=== PATIENT | female | born 1955 | race Caucasian/White ===

== ENCOUNTER → 2018-04-01 | Outpatient (CLI) | payer OTHER ==
--- NOTE | 2018-04-02 09:16 | MM ---
Reason for exam: screening (asymptomatic). Last mammogram was performed 2 years and 2 months ago. History: Patient is postmenopausal and is nulliparous. Physical Findings: A clinical breast exam by your physician is recommended on an annual basis and results should be correlated with mammographic findings. MG Screening Mammo w CAD Bilateral CC and MLO view(s) were taken. Prior study comparison: January 19, 2016, bilateral MG screening mammo w CAD. April 28, 2014, bilateral MG screening mammo w CAD. There are scattered fibroglandular densities. There is no discrete abnormality. ASSESSMENT: Negative, BI-RAD 1 RECOMMENDATION: Routine screening mammogram of both breasts in 1 year.
== END ==
LOC: RADMAMWWP 11:10
PROVIDERS: ATTEND Family Medicine
DX: Z12.31 Encounter for screening mammogram for malignant neoplasm of breast (principal)
CPT/HCPCS: 77067

== ENCOUNTER 2018-07-02 17:37 | Emergency (ER) | payer OTHER ==
[2018-07-02 18:59] VITALS: RESP 18
[2018-07-02 19:34] LABS: Basophils % (A) 0 %; Eosinophils # (A) 0.1 k/uL (0-0.7); Eosinophils % (A) 1 %; HCT 47.8 % (34.0-46.0); HGB 14.8 gm/dL (11.4-16.0); Lymphocytes # (A) 0.9 k/uL (1.0-4.8); Lymphocytes % (A) 10 %; MCH 26.7 pg (25.0-35.0); MCV 86.1 fL (80.0-100.0); Mean Platelet Volume 8.8; Monocytes # (A) 0.5 k/uL (0-1.0); Monocytes % (A) 5 %; Neutrophils # (A) 7.3 k/uL (1.3-7.7); Neutrophils % (A) 81 %; Platelet Count 192 k/uL (150-450); RBC 5.55 m/uL (3.80-5.40); RDW 14.1 % (11.5-15.5); WBC 9.1 k/uL (3.8-10.6)
[2018-07-02 19:43] LABS: ALT 24 U/L (9-52); AST 52 U/L (14-36); Albumin 4.7 g/dL (3.5-5.0); Alkaline Phosphatase 66 U/L (38-126); Amylase 66 U/L (30-110); Anion Gap 11 mmol/L; Blood Urea Nitrogen 15 mg/dL (7-17); Calcium 9.9 mg/dL (8.4-10.2); Carbon Dioxide 21 mmol/L (22-30); Chloride 102 mmol/L (98-107); Glucose 119 mg/dL (74-99); Lipase 150 U/L (23-300); Potassium 4.8 mmol/L (3.5-5.1); Sodium 134 mmol/L (137-145); Total Bilirubin 0.8 mg/dL (0.2-1.3); Total Protein 8.3 g/dL (6.3-8.2)
--- NOTE | 2018-07-02 20:49 | XR ---
EXAMINATION TYPE: XR KUB DATE OF EXAM: 07/02/2018 COMPARISON: NONE HISTORY: Lower abdominal pain TECHNIQUE: 2 upright views FINDINGS: Visualized lung bases and pleural spaces are negative. There is no pneumoperitoneum. No pneumatosis. The bowel gas pattern is normal. No acute skeletal or soft tissue findings. IMPRESSION: No acute radiographic process.
[2018-07-02] MEDS ORDERED: MORPHINE SULFATE 4 MG/ML SYRINGE IVP STA (21:05)
[2018-07-02] MEDS ORDERED: ONDANSETRON 4 MG/2 ML VIAL IVP STA (21:05)
[2018-07-02] MEDS ORDERED: SODIUM CHLORIDE 0.9% 1,000 ML IV ONE (21:05)
--- NOTE | 2018-07-02 22:32 | ED ---
Abdominal Pain HPI - General Chief Complaint: Abdominal Pain Stated Complaint: Abd.pain Time Seen by Provider: 07/02/18 20:27 Source: patient Mode of arrival: ambulatory Limitations: no limitations - History of Present Illness Initial Comments: 62-year-old female patient presents to the emergency department today for evaluation of lower abdominal pain. Patient states this started around 5:00 this morning. Patient states is intense at times and then lessens at times. Patient states that the pain has been intense. She denies any nausea, vomiting, constipation, or diarrhea. Denies any fever or chills with this. Denies any hematuria, dysuria, urinary frequency, urinary urgency. Denies any history of abdominal surgery. Denies any dark, black, or bloody stool. Patient denies any abnormal vaginal bleeding or discharge. Patient denies any recent rash, shortness breath, chest pain, back pain, numbness, tingling, dizziness, weakness, headache, visual changes, or any other complaints. - Related Data Home Medications Medication Instructions Recorded Confirmed Aspirin EC [Ecotrin Low Dose] 81 mg PO DAILY 07/02/18 07/02/18 Atorvastatin [Lipitor] 10 mg PO HS 07/02/18 07/02/18 Levothyroxine Sodium [Synthroid] 75 mcg PO DAILY 07/02/18 07/02/18 Multivitamins, Thera [Multivitamin 1 tab PO AC-LUNCH 07/02/18 07/02/18 (formulary)] Ubidecarenone [Co Q-10] 100 mg PO AC-LUNCH 07/02/18 07/02/18 Previous Rx's Medication Instructions Recorded Cephalexin [Keflex] 500 mg PO Q6H #28 cap 07/02/18 Allergies Allergy/AdvReac Type Severity Reaction Status Date / Time bee venom protein (honey bee) Allergy Rash/Hives Verified 07/02/18 20:32 Review of Systems ROS Statement: Those systems with pertinent positive or pertinent negative responses have been documented in the HPI. ROS Other: All systems not noted in ROS Statement are negative. Past Medical History Past Medical History: CVA/TIA, Hyperlipidemia, Thyroid Disorder History of Any Multi-Drug Resistant Organisms: None Reported Past Surgical History: No Surgical Hx Reported Past Psychological History: No Psychological Hx Reported Smoking Status: Never smoker Past Alcohol Use History: Occasional Past Drug Use History: None Reported General Exam Limitations: no limitations General appearance: alert, in no apparent distress, other (Physical well-deve loped, well-nourished adult female patient in no acute distress. Vital signs upon presentation are temperature 98.2F, pulse 60, respirations 18, blood pressure 197/110, pulse ox 98% on room air.) Eye exam: Present: normal appearance, PERRL, EOMI. Absent: scleral icterus, conjunctival injection, periorbital swelling ENT exam: Present: normal exam, normal oropharynx, mucous membranes moist Respiratory exam: Present: normal lung sounds bilaterally. Absent: respiratory distress, wheezes, rales, rhonchi, stridor Cardiovascular Exam: Present: regular rate, normal rhythm, normal heart sounds. Absent: systolic murmur, diastolic murmur, rubs, gallop, clicks GI/Abdominal exam: Present: soft, tenderness (Lower abdominal tenderness), normal bowel sounds. Absent: distended, guarding, rebound, rigid Neurological exam: Present: alert, oriented X3, CN II-XII intact Psychiatric exam: Present: normal affect, normal mood Skin exam: Present: warm, dry, intact, normal color. Absent: rash Course Vital Signs 07/02/18 07/02/18 07/02/18 18:55 21:44 23:47 Temperature 98.2 F 98.3 F Pulse Rate 60 56 L 82 Respiratory 18 18 18 Rate Blood Pressure 197/110 147/97 142/92 O2 Sat by Pulse 98 97 98 Oximetry Medical Decision Making - Medical Decision Making 62-year-old female patient presented to the emergency department today for evaluation of lower abdominal pain. Physical examination revealed lower abdominal tenderness. No CVA tenderness. Labs reviewed and are unremarkable. Urinalysis did show evidence for urinary tract infection. CT of the abdomen and pelvis was obtained and showed no acute findings. The patient is afebrile with normal vitals. She was given IV fluids and pain medication here in the emergency department. Upon reevaluation she does report improvement symptoms however has continued pain to the lower abdomen. I did discuss findings and results with her. She'll be treated for urinary tract infection with Keflex. She is instructed to follow-up with her primary care physician for further evaluation discuss colonoscopy and technology applications consultant examination. Return parameters were discussed in detail. She verbalizes understanding and agrees with this p uday. - Lab Data Result diagrams: 07/02/18 19:22 07/02/18 19:22 Lab Results 07/02/18 07/02/18 07/02/18 Range/Units 19:22 19:22 22:32 WBC 9.1 (3.8-10.6) k/uL RBC 5.55 H (3.80-5.40) m/uL Hgb 14.8 (11.4-16.0) gm/dL Hct 47.8 H (34.0-46.0) % MCV 86.1 (80.0-100.0) fL MCH 26.7 (25.0-35.0) pg MCHC 31.0 (31.0-37.0) g/dL RDW 14.1 (11.5-15.5) % Plt Count 192 (150-450) k/uL Neutrophils % 81 % Lymphocytes % 10 % Monocytes % 5 % Eosinophils % 1 % Basophils % 0 % Neutrophils # 7.3 (1.3-7.7) k/uL Lymphocytes # 0.9 L (1.0-4.8) k/uL Monocytes # 0.5 (0-1.0) k/uL Eosinophils # 0.1 (0-0.7) k/uL Basophils # 0.0 (0-0.2) k/uL Sodium 134 L (137-145) mmol/L Potassium 4.8 (3.5-5.1) mmol/L Chloride 102 (98-107) mmol/L Carbon Dioxide 21 L (22-30) mmol/L Anion Gap 11 mmol/L BUN 15 (7-17) mg/dL Creatinine 0.71 (0.52-1.04) mg/dL Est GFR (CKD-EPI)AfAm >90 (>60 ml/min/1.73 sqM) Est GFR (CKD-EPI)NonAf >90 (>60 ml/min/1.73 sqM) Glucose 119 H (74-99) mg/dL Calcium 9.9 (8.4-10.2) mg/dL Total Bilirubin 0.8 (0.2-1.3) mg/dL AST 52 H (14-36) U/L ALT 24 (9-52) U/L Alkaline Phosphatase 66 (38-126) U/L Total Protein 8.3 H (6.3-8.2) g/dL Albumin 4.7 (3.5-5.0) g/dL Amylase 66 (30-110) U/L Lipase 150 (23-300) U/L Urine Color Light Yellow Urine Appearance Clear (Clear) Urine pH 5.0 (5.0-8.0) Ur Specific [place] 1.042 H (1.001-1.035) Urine Protein Negative (Negative) Urine Glucose (UA) Negative (Negative) Urine Ketones 1+ H (Negative) Urine Blood Small H (Negative) Urine Nitrite Negative (Negative) Urine Bilirubin Negative (Negative) Urine Urobilinogen <2.0 (<2.0) mg/dL Ur Leukocyte Esterase Moderate H (Negative) Urine RBC 1 (0-5) /hpf Urine WBC 24 H (0-5) /hpf Urine WBC Clumps Occasional H (None) /hpf Ur Squamous Epith Cells <1 (0-4) /hpf Amorphous Sediment Rare H (None) /hpf Urine Bacteria Rare H (None) /hpf Urine Mucus Rare H (None) /hpf - Radiology Data Radiology results: report reviewed, image reviewed CT abdomen and pelvis with contrast was obtained. Report was reviewed in its entirety. Impression by Dr. Negrete shows no acute findings. Disposition Clinical Impression: Urinary tract infection, Abdominal pain Disposition: HOME SELF-CARE Condition: Good Instructions (If sedation given, give patient instructions): Urinary Tract Infection in Women (ED), Abdominal Pain (ED) Additional Instructions: Increase fluids. Complete antibiotic prescription in full. Follow-up with your primary care physician for recheck in 1-2 days. Return to the emergency department immediately for any new, worsening, or concerning symptoms. Prescriptions: Cephalexin [Keflex] 500 mg PO Q6H #28 cap Is patient prescribed a controlled substance at d/c from ED?: No Referrals: Shelton Almodovar DO [Primary Care Provider] - 1-2 days Time of Disposition: 23:12
[2018-07-02 22:43] LABS: Amorphous Sediment,Urine Rare /hpf; Appearance,Urine Clear (Clear); Bacteria,Urine Rare /hpf; Bilirubin,Urine Negative (Negative); Blood,Urine Small (Negative); Color,Urine Light Yellow; Glucose,Urine (UA) Negative (Negative); Ketones,Urine 1+ (Negative); Leukocyte Esterase,Urine Moderate (Negative); Mucus,Urine Rare /hpf; Nitrite,Urine Negative (Negative); Protein,Urine Negative (Negative); RBC,Urine 1 /hpf (0-5); Specific Gravity,Urine 1.042 (1.001-1.035); Squamous Epithelial Cell,Urine <1 /hpf (0-4); Urobilinogen,Urine <2.0 mg/dL (<2.0); WBC,Urine 24 /hpf (0-5)
--- NOTE | 2018-07-02 23:00 | CT ---
EXAM: CT Abdomen and Pelvis With Intravenous Contrast CLINICAL HISTORY: Lower abdominal pain TECHNIQUE: Axial computed tomography images of the abdomen and pelvis with intravenous contrast. DLP is 768.4 mGy-cm. This CT exam was performed using one or more of the following dose reduction techniques: automated exposure control, adjustment of the mA and/or kV according to patient size, and/or use of iterative reconstruction technique. Coronal and sagittal reconstructions are performed. 394 images received COMPARISON: No relevant prior studies available. FINDINGS: Lung bases: Unremarkable. No mass. No consolidation. ABDOMEN: Liver: Unremarkable. No mass. Gallbladder and bile ducts: Unremarkable. No calcified stones. No ductal dilation. Pancreas: Unremarkable. No mass. No ductal dilation. Spleen: Unremarkable. No splenomegaly. Adrenals: Unremarkable. No mass. Kidneys and ureters: Unremarkable. No solid mass. No hydronephrosis. Stomach and bowel: Unremarkable. No obstruction. No mucosal thickening. PELVIS: Appendix: Normal appendix. Bladder: Unremarkable. No mass. Reproductive: Unremarkable as visualized. ABDOMEN and PELVIS: Intraperitoneal space: Unremarkable. No free air. No significant fluid collection. Bones/joints: No acute fracture. No dislocation. Soft tissues: Unremarkable. Vasculature: Unremarkable. No abdominal aortic aneurysm. Lymph nodes: Unremarkable. No enlarged lymph nodes. IMPRESSION: No acute findings.
[2018-07-02] MEDS ORDERED: CEPHALEXIN 500MG STARTER PACK 4 CAP BTL PO STA (23:10)
[2018-07-02] MEDS ORDERED: KETOROLAC 30 MG/ML 1 ML VIAL IVP STA (23:14)
[2018-07-02] MEDS ORDERED: ACET/COD 300 MG/30 MG STARTER PACK 6 TAB BTL PO STA (23:28)
[2018-07-02 23:48] VITALS: BP 142/92; PULSE 82; TEMP 98.3
== END 2018-07-02 23:48 | disposition home or self-care (01) ==
LOC: EC 17:37
DX: N39.0 Urinary tract infection, site not specified (principal); E78.5 Hyperlipidemia, unspecified; E07.9 Disorder of thyroid, unspecified; Z79.82 Long term (current) use of aspirin; Z79.899 Other long term (current) drug therapy; Z91.030 Bee allergy status
CPT/HCPCS: 36415; 80053; 82150; 83690; 85025; 81001; 74018; 74177; 99284; 96374; 96375 ×2; 96361; J2270; J2405; J1885; Q9967

== ENCOUNTER → 2019-03-13 | Outpatient (CLI) | payer OTHER ==
--- NOTE | 2019-03-13 16:59 | US ---
EXAMINATION TYPE: US carotid duplex BILAT DATE OF EXAM: 03/13/2019 COMPARISON: US CLINICAL HISTORY: I67.9Cerebrovascular disease. Known left ICA occlusion EXAM MEASUREMENTS: RIGHT: Peak Systolic Velocity (PSV) cm/sec ----- Right CCA: 98.1 ----- Right ICA: 148 ----- Right ECA: 110 ICA/CCA ratio: 1.5 RIGHT: End Diastole cm/sec ----- Right CCA: 37.0 ----- Right ICA: 64.8 ----- Right ECA: 18.2 LEFT: Peak Systolic Velocity (PSV) cm/sec ----- Left CCA: 72.3 ----- Left ICA: Occluded ----- Left ECA: 92.4 ICA/CCA ratio: --- LEFT: End Diastole cm/sec ----- Left CCA: 12.6 ----- Left ICA: Occluded ----- Left ECA: 16.1 VERTEBRALS (direction of flow): Right Vertebral: Antegrade Left Vertebral: Antegrade Elevated velocities right side when compared to previous/ Left ICA occluded Grayscale, color Doppler, spectral Doppler imaging performed of the carotid arteries. There is a lack of color flow, no waveforms obtained within the left internal carotid artery distribution IMPRESSION: Left internal carotid artery occlusion could be confirmed with CTA or MRA of the neck. Criteria for Assigning % of Stenosis / Diameter reduction (Estimation based on the indirect measurements of the internal carotid artery velocities (ICA PSV). 1. Normal (no stenosis)=ICA PSV < 125 cm/s: ratio < 2.0: ICA EDV<40 cm/s. 2. Less than 50% stenosis=ICA PSV < 125 cm/s: ratio < 2.0: ICA EDV<40 cm/s. 3. 50 to 69% stenosis=ICA PSV of 125 to 230 cm/s: ration 2.0 ? 4.0: ICA EDV 40-100 cm/s. 4. Greater than 70% stenosis to near occlusion= ICA PSV > 230 cm/s: ratio > 4.0: ICA EDV > 100 cm/s. 5. Near occlusion= ICA PSV velocities may be low or undetectable: variable ratio and ICA EDV. 6. Total occlusion=unable to detect flow.
--- NOTE | 2019-03-14 13:00 | BD ---
EXAMINATION TYPE: Axial Bone Density DATE OF EXAM: 03/13/2019 COMPARISON: 01.19.2016 CLINICAL HISTORY: 63 YR OLD FEMALE.....ICD-10 CODE: M81.0 AGE RELATED OSTEOPOROSIS Height: 60.4 Weight: 164 FRAX RISK QUESTIONS: NOTHING TO NOTE HERE RISK FACTORS HISTORY OF: NO FXs SINCE THE AGE OF 50 Postmenopausal woman: YES, AT ABOUT 51 YRS OLD Hyperparathyroidism: NO Adrenal Insufficiency: NO MEDICATIONS: Thyroid Medications: YES, GENERIC SYNTHROID, FOR ABOUT 10+ YRS Additional Medications: BP MEDS, TUMS PRN, STATIN FOR CHOLESTEROL, CALCIUM AND VIT D Additional History: CHOLESTEROL, HYPERTENSION, REFLUX EXAM MEASUREMENTS: Bone mineral densitometry was performed using the [employer] System. Bone mineral density as measured about the Lumbar spine is: ----- L1-L4(G/cm2): 0.906 T Score Values are as follows: ----- L1: -2.2 ----- L2: -2.3 ----- L3: -2.1 ----- L4: -2.7 ----- L1-L4: -2.3 Bone mineral density has: Increased 3.0% SINCE 01.19.2016 Bone mineral density about the R hip (g/cm2): 0.807 Bone mineral density about the L hip (g/cm2): 0.775 T Score values are as follows: -----R Neck: -2.2 -----L Neck: -1.9 -----R Total: -1.6 -----L Total: -1.9 Bone mineral density has: Decreased -0.3% SINCE 01.19.2016 FRAX%s: THERE IS A 10.9% CHANCE FOR A MAJOR OSTEOPOROTIC FX AND A 1.8% FOR HIP.....PROBABILITY FOR FX IN 10 YRS TIME IMPRESSION: Osteopenia (T Score between -2.5 and -1). There is slightly increased risk of fracture and the patient may be considered for treatment. Re-Screen 2-5 years. NOTE: T-SCORE=SD OF THE YOUNG ADULT MEAN.
== END | disposition home or self-care (01) ==
LOC: RADUSWWP 15:23
PROVIDERS: ATTEND Family Medicine
DX: I65.22 Occlusion and stenosis of left carotid artery (principal); M85.80 Other specified disorders of bone density and structure, unspecified site
CPT/HCPCS: 77080; 93880

== ENCOUNTER → 2021-08-26 | Outpatient (CLI) | payer MEDICARE ==
--- NOTE | 2021-08-29 10:32 | MM ---
Reason for Exam: Screening (asymptomatic). Last mammogram was performed 3 year(s) and 5 month(s) ago. Patient History: Menarche at age 13. Patient has no children. Postmenopausal. Risk Values: Brittney 5 year model risk: 1.8%. NCI Lifetime model risk: 6.9%. Prior Study Comparison: 04/28/2014 Bilateral Screening Mammogram, [facility]. 01/19/2016 Bilateral Screening Mammogram, [facility]. 04/01/2018 Bilateral Screening Mammogram, [facility]. Tissue Density: There are scattered fibroglandular densities. Findings: Analyzed By CAD. No significant change from prior exams. Overall Assessment: Negative, BI-RAD 1 Management: Screening Mammogram of both breasts in 1 year. 1. Patient should continue monthly self breast exams. 2. A clinical breast exam by your physician is recommended on an annual basis. 3. This exam should not preclude additional follow-up of suspicious palpable abnormalities. Electronically signed and approved by: Magdalena Hampton M.D. Radiologist
== END | disposition home or self-care (01) ==
LOC: RADMAMWWP 15:44
PROVIDERS: ATTEND Family Medicine
DX: Z12.31 Encounter for screening mammogram for malignant neoplasm of breast (principal); Z78.0 Asymptomatic menopausal state
CPT/HCPCS: 77063; 77067

== ENCOUNTER → 2023-04-19 | Outpatient (CLI) | payer MEDICARE ==
--- NOTE | 2023-04-23 00:07 | MM ---
Reason for Exam: Screening (asymptomatic). Last mammogram was performed 1 year(s) and 8 month(s) ago. Patient History: Menarche at age 13. Patient has no children. Postmenopausal. Risk Values: Brittney 5 year model risk: 1.9%. NCI Lifetime model risk: 6.4%. Prior Study Comparison: 01/19/2016 Bilateral Screening Mammogram, [facility]. 04/01/2018 Bilateral Screening Mammogram, [facility]. 08/26/2021 Bilateral MG 3D screening mammo w/cad, [facility]. Tissue Density: There are scattered areas of fibroglandular density. Findings: Analyzed By CAD. There is no suspicious group of microcalcifications or new suspicious mass in either breast. Overall Assessment: Negative, BI-RAD 1 Management: Screening Mammogram of both breasts in 1 year. . Patient should continue monthly self-breast exams. A clinical breast exam by your physician is recommended on an annual basis. This exam should not preclude additional follow-up of suspicious palpable abnormalities. Note on Brittney scores and lifetime risk: 1. A Brittney score greater than 3% is considered moderate risk. If this is the case, consider specialist referral to assess eligibility for a risk reducing agent. 2. If overall lifetime risk for the development of breast cancer is 20% or higher, the patient may qualify for future screening with alternating mammogram and breast MRI. Electronically signed and approved by: Magdalena Hampton M.D. Radiologist
== END | disposition home or self-care (01) ==
LOC: RADMAMWWP 12:42
PROVIDERS: ATTEND Family Medicine
DX: Z12.31 Encounter for screening mammogram for malignant neoplasm of breast (principal); Z78.0 Asymptomatic menopausal state
CPT/HCPCS: 77063; 77067